=== PATIENT | male | born 1990 | race Caucasian/White ===

== ENCOUNTER 2019-06-16 03:57 | Emergency (ER) | payer MEDICAID ==
[~2019-06-16] VITALS: Ht 172.7 cm; Wt 81.0 kg
[2019-06-16] MEDS ORDERED: BACITRACIN ZINC OINT UDPKT TOP ONE (06:45)
[2019-06-16] MEDS ORDERED: TETANUS, DIPHTHERIA, PERTUSSIS VAC/PF 0.5ML (>7YR OLD) IM ONE (06:45)
[2019-06-16] MEDS ORDERED: LIDOCAINE HCL/PF 1% 10 MG/ML 5ML VIAL IJ ONE (06:45)
[2019-06-16] MEDS ORDERED: HYDROCODONE/ACETAMINOPHEN 5/325MG TABLET PO ONE (06:45)
[2019-06-16] MEDS ORDERED: CHLORHEXIDINE GLUCONATE 0.12% MOUTHWASH UDC SSP SCH (09:45)
[2019-06-16 10:10] VITALS: BP 116/66
== END 2019-06-16 10:10 | disposition home or self-care (01) ==
LOC: ER 03:57
DX: S01.511A Laceration without foreign body of lip, initial encounter (principal); S01.21XA Laceration without foreign body of nose, initial encounter; Y04.0XXA Assault by unarmed brawl or fight, initial encounter; Y93.89 Activity, other specified; Y92.89 Other specified places as the place of occurrence of the external cause; Y99.8 Other external cause status; F12.10 Cannabis abuse, uncomplicated
CPT/HCPCS: 12013; 70486; 90471; 90715; 99284; J3490

== ENCOUNTER 2019-06-19 07:50 | Emergency (ER) | payer MEDICAID ==
[~2019-06-19] VITALS: Ht 172.7 cm; Wt 78.0 kg
[2019-06-19] MEDS ORDERED: CEPHALEXIN 250MG CAPSULE PO ONE (09:00)
[2019-06-19] MEDS ORDERED: SULFAMETHOXAZOLE/TRIMETHOPRIM 800/160MG TABLET PO ONE (09:00)
[2019-06-19 09:33] VITALS: BP 129/81
== END 2019-06-19 09:34 | disposition home or self-care (01) ==
LOC: ER 07:50
DX: T81.41XA Infection following a procedure, superficial incisional surgical site, initial encounter (principal); Z48.02 Encounter for removal of sutures; B99.8 Other infectious disease; F12.10 Cannabis abuse, uncomplicated; Y83.8 Other surgical procedures as the cause of abnormal reaction of the patient, or of later complication, without mention of misadventure at the time of the procedure; Y92.89 Other specified places as the place of occurrence of the external cause
CPT/HCPCS: 99283

== ENCOUNTER 2019-06-23 08:07 | Emergency (ER) | payer MEDICAID ==
[~2019-06-23] VITALS: Ht 172.7 cm; Wt 80.0 kg
[2019-06-23 10:43] VITALS: BP 110/74
== END 2019-06-23 11:51 | disposition home or self-care (01) ==
LOC: ER 08:48
DX: Z48.00 Encounter for change or removal of nonsurgical wound dressing (principal); F17.200 Nicotine dependence, unspecified, uncomplicated; F12.10 Cannabis abuse, uncomplicated
CPT/HCPCS: 99281

== ENCOUNTER 2022-05-12 15:15 | Emergency (ER) | payer MEDICAID ==
[~2022-05-12] VITALS: Ht 172.7 cm; Wt 80.0 kg
[2022-05-12] MEDS ORDERED: IBUPROFEN 600MG TABLET PO ONE (16:30)
[2022-05-12 16:51] VITALS: BP 123/82
[2022-05-12] MEDS ORDERED: IBUP-2029 MT (17:12)
== END 2022-05-12 17:18 | disposition home or self-care (01) ==
LOC: ER 15:15
DX: M94.0 Chondrocostal junction syndrome [Tietze] (principal)
CPT/HCPCS: 71045; 93005; 99283

== ENCOUNTER 2024-03-06 16:21 | Emergency (ER) | payer SELFPAY ==
[~2024-03-06] VITALS: Ht 175.3 cm; Wt 93.0 kg
[~2024-03-06 16:21] MED LIST: IBUP-2029 MT
[2024-03-06 16:51] VITALS: O2SAT 100
[2024-03-06] MEDS: KETOROLAC 30MG/ML VIAL IM ONE (18:47)
[2024-03-06] MEDS: CYCLOBENZAPRINE 10MG TABLET PO ONE (18:47)
[2024-03-06] MEDS ORDERED: IBUP-2029 MT (18:57)
[2024-03-06] MEDS ORDERED: METH-653 MT (18:57)
[2024-03-06 19:02] VITALS: BP 116/81; PULSE 73; RESP 16; TEMP 36.78072; O2SAT 100
== END 2024-03-06 19:07 | disposition home or self-care (01) ==
LOC: ER 16:21
DX: M54.50 Low back pain, unspecified (principal); F12.90 Cannabis use, unspecified, uncomplicated
CPT/HCPCS: 99285; 72131; 96372; J1885